=== PATIENT | female | born 1995 | race African-American/Black ===

== ENCOUNTER 2018-12-25 07:57 | Day surgery (SDC) | payer BC, MEDICAID ==
[2018-12-24 11:22] LABS: ABSOLUTE EOSINOPHILS # (AUTO) 0.1 10^3/uL (0.0-0.6); ABSOLUTE MONOCYTES (AUTO) 0.7 10^3/uL (0.1-1.4); ABSOLUTE NEUT (AUTO) 3.3 10^3/uL (1.7-8.2); BASOPHILS % (AUTO) 0.6 % (0-2); EOSINOPHILS % (AUTO) 2.8 % (0-6); HEMATOCRIT 37.8 % (36.0-47.0); HEMOGLOBIN 12.2 g/dL (12.0-15.5); LYMPHOCYTES % (AUTO) 20.2 % (13-45); MEAN CORPUSCULAR HEMOGLOBIN 24.6 pg (27.0-33.4); MEAN CORPUSCULAR HGB CONC 32.4 g/dL (32.0-36.0); MEAN CORPUSCULAR VOLUME 76 fl (80-97); MONOCYTES % (AUTO) 13.1 % (3-13); PLATELET COUNT 297 10^3/uL (150-450); RED BLOOD COUNT 4.96 10^6/uL (3.72-5.28); SEGMENTED NEUTROPHILS % (AUTO) 63.3 % (42-78); TOTAL CELLS COUNTED % (AUTO) 100 %; WHITE BLOOD COUNT 5.2 10^3/uL (4.0-10.5)
[2018-12-24 11:58] LABS: ANION GAP 10 (5-19); BLOOD UREA NITROGEN 12 mg/dL (7-20); CALCIUM 9.9 mg/dL (8.4-10.2); CARBON DIOXIDE 28 mmol/L (22-30); CHLORIDE 101 mmol/L (98-107); GLUCOSE 284 mg/dL (75-110); POTASSIUM 4.6 mmol/L (3.6-5.0)
--- NOTE | 2018-12-24 23:49 | EKG REPORT ---
SEVERITY:- NORMAL ECG - SINUS RHYTHM : Confirmed by: Delia Fernando 24-Dec-2018 23:48:16
[~2018-12-25 07:57] MED LIST: CEFAZOLIN 1 GM/D5W RTU 1 GM/50 ML RTUPB IV ONE; CEFAZOLIN 1 GM/D5W RTU 1 GM/50 ML RTUPB IV PRN
[2018-12-25 08:32] LABS: APPEARANCE,URINE SLIGHTLY-CLOUDY; BILIRUBIN,URINE NEGATIVE (NEGATIVE); COLOR,URINE YELLOW; GLUCOSE, URINE 50 mg/dL (NEGATIVE); KETONES,URINE NEGATIVE (NEGATIVE); LEUKOCYTE ESTERASE,URINE TRACE (NEGATIVE); NITRITE,URINE NEGATIVE (NEGATIVE); PROTEIN,URINE NEGATIVE (NEGATIVE); UROBILINOGEN,URINE NEGATIVE mg/dL (<2.0)
[2018-12-25] MEDS ORDERED: BUPIVACAINE HCL 0.25% /EPINEPHRINE INJ/PF 30 ML SDV ONE (10:41)
[2018-12-25] MEDS ORDERED: FENTANYL CITRATE INJ/PF 250 MCG/5 ML AMPULE ONE (10:54)
[2018-12-25] MEDS ORDERED: PROPOFOL INJ 200 MG/20 ML VIAL IV ONE (10:54)
[2018-12-25] MEDS ORDERED: MIDAZOLAM 2 MG/2 ML INJ ONE (10:54)
--- NOTE | 2018-12-25 11:59 | Operative Report ---
Nonrecallable Operative Report DATE OF SURGERY: 12/25/18 PREOPERATIVE DIAGNOSIS: rectal condyloma POSTOPERATIVE DIAGNOSIS: rectal condyloma OPERATION: fulguration of rectal condyloma SURGEON: TEODORO SIERRA ANESTHESIA: GA TISSUE REMOVED OR ALTERED: none COMPLICATIONS: none ESTIMATED BLOOD LOSS: 0 INTRAOPERATIVE FINDINGS: see dictation PROCEDURE: see dictation
[2018-12-25] MEDS ORDERED: OXYCODONE-ACETAMINOPHEN 5-325 MG TABLET PO PRN (12:01)
--- NOTE | 2018-12-25 12:01 | Discharge Summary ---
Discharge Summary (SDC) - Discharge Final Diagnosis: rectal condyloma Date of Surgery: 12/25/18 Discharge Date: 12/25/18 Condition: Good Treatment or Instructions: sitz baths tid iwth epsome salts. Referrals: MABEL RUTH PA-C [Primary Care Provider] - Discharge Diet: As Tolerated Discharge Activity: Activity As Tolerated Report the Following to Your Physician Immediately: Shortness of Breath, Nausea, Vomiting, Fever over 101 Degrees, Unusual Bleeding - f/u in 10-14 days
--- NOTE | 2018-12-25 12:16 | OPERATIVE REPORT E ---
Operative Report NAME: RUBY CONTRERAS : 1995 AGE: 23Y DATE OF SURGERY: 12/25/2018 ROOM: PREOPERATIVE DIAGNOSIS: RECTAL CONDYLOMATA POSTOPERATIVE DIAGNOSIS: RECTAL CONDYLOMATA OPERATION: Fulguration of rectal condylomatous. SURGEON: TEODORO SIERRA M.D. PROCEDURE: Patient brought to the operating room in awake, alert, and stable condition and placed on the operative table in supine position, induced under general anesthesia and intubated. She was then placed in a high lithotomy position. The rectum and perineum were prepped and draped in usual sterile fashion. Using a Bovie cautery, each condylomata on each side of the rectum were fulgurated. They were all then removed with an Allis clamp. The base of them were all fulgurated again to obtain good hemostasis and the area underneath the skin was anesthetized with 1% lidocaine with epinephrine which completed the procedure. The patient was awakened in the operating room, extubated, and transferred to recovery in stable condition, no complications. ESTIMATED BLOOD LOSS: Negligible. SPONGE AND NEEDLE COUNTS: Correct x2. DICTATING PHYSICIAN: TEODORO SIERRA M.D. [id number] PHY#: [id number] ID: [id number] JOB#: [id number] ACCT: [id number] cc:TEODORO SIERRA M.D. >
[2018-12-25] MEDS: FENTANYL CITRATE INJ/PF 100 MCG/2 ML AMPUL ONE ×2 (12:20→12:25)
[2018-12-25] MEDS ORDERED: OXYCODONE-ACETAMINOPHEN 5-325 MG TABLET ONE (13:26)
[2018-12-25] MEDS ORDERED: ONDANSETRON HCL INJ/PF 4 MG/2 ML SDV ONE (14:53)
[2018-12-25] MEDS ORDERED: NEOSTIGMINE METHYLSULFATE 10 MG/10 ML VIAL ONE (14:53)
[2018-12-25] MEDS ORDERED: ROCURONIUM BROMIDE INJ 50 MG/5 ML VIAL IV ONE (14:53)
[2018-12-25] MEDS ORDERED: DEXAMETHASONE SOD PHOSPHATE INJ 4 MG/1 ML VIAL ONE (14:53)
[2018-12-25] MEDS ORDERED: LIDOCAINE 2% INJ-PF (20 MG/ML) 2 ML AMPUL ONE (14:53)
[2018-12-25] MEDS ORDERED: GLYCOPYRROLATE 1 MG/5 ML VIAL ONE (14:53)
[2018-12-25 15:04] VITALS: BP 130/71
== END 2018-12-25 14:40 | disposition home or self-care (01) ==
LOC: OROUT 07:57
PROVIDERS: ATTEND Surgery
DX: A63.0 Anogenital (venereal) warts (principal); E11.9 Type 2 diabetes mellitus without complications; F32.9 Major depressive disorder, single episode, unspecified; I10 Essential (primary) hypertension; I25.10 Atherosclerotic heart disease of native coronary artery without angina pectoris; E66.01 Morbid (severe) obesity due to excess calories; Z68.44 Body mass index [BMI] 60.0-69.9, adult
CPT/HCPCS: 93005; 36415; 82962; 85025; 81025; 80048; 81001; 93010; 46922; J2250; J3490 ×4; J0690; J1100; J3010 ×2; J2710; J2405; J2704; 902